=== PATIENT | female | born 1995 | race Caucasian/White ===

== ENCOUNTER → 2023-07-08 06:26 | Day surgery (SDC) | payer OTHER, SELFPAY | LOC: GI 06:26 | PROVIDERS: ATTENDING PHYSICIAN Internal Medicine; FAMILY PHYSICIAN Family Medicine | DX: R10.13 Epigastric pain (principal); R76.8 Other specified abnormal immunological findings in serum; K31.89 Other diseases of stomach and duodenum; K29.50 Unspecified chronic gastritis without bleeding | CPT/HCPCS: 43239; 88305; 88342 ==

== ENCOUNTER 2025-03-24 06:19 | Day surgery (SDC) | payer OTHER, SELFPAY | END 2025-03-24 15:31 | disposition home or self-care (01) | LOC: GI 06:19 | PROVIDERS: ATTENDING PHYSICIAN Internal Medicine | DX: D50.9 Iron deficiency anemia, unspecified (principal); R12 Heartburn; K90.0 Celiac disease; K52.832 Lymphocytic colitis; K63.89 Other specified diseases of intestine | CPT/HCPCS: 45380; 43239; 88305; 88342 ==